=== PATIENT | female | born 1930 | race Caucasian/White ===

== ENCOUNTER 2019-07-05 01:48 | Emergency (ER) | payer MEDICAID, MEDICARE, OTHER ==
[~2019-07-05] VITALS: Ht 152.4 cm; Wt 59.0 kg
[~2019-07-05 01:48] MED LIST: ACET500T33 PO; AMLO10TA8 PO; BISA10SU55 RC; CHOL5POW MC; HYDR12.575 PO; INSU100I13 SQ; LOPE2TAB11 PO; MAGN400O7 PO; METF500T25 PO; NABU500T PO; SIME125T17 PO
--- NOTE | 2019-07-05 02:33 | PHYS DOC ---
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 She hit her head on the wall. It is unknown whether there was loss of consciousness. She does have a forehead laceration. According to long term staff other than the fact that she has a laceration on her head she is been acting her usual self since the fall.[] Review of Systems Review of Systems Review of systems is unobtainable secondary to underlying dementia Allergies Allergies Allergies Coded Allergies Type Severity Reaction Last Updated Verified lisinopril Allergy Unknown 10/04/13 Yes Physical Exam Physical Exam Constitutional: Frail, elderly no distress. [] HENT: She has a 3 cm laceration in the middle of her forehead that is linear. She has a small abrasion over the bridge of her nose with significant ecchymosis over the bridge of her nose. She also has a 1 cm laceration that does not cross the vermilion border her upper lip[] Eyes: PERRLA, EOMI, conjunctiva normal, no discharge. [] Neck: Normal range of motion, no tenderness, supple, no stridor. [] Cardiovascular:Heart rate regular rhythm, no murmur [] Lungs & Thorax: Bilateral breath sounds clear to auscultation [] Abdomen: Bowel sounds normal, soft, no tenderness, no masses, no pulsatile masses. [] Skin: 1.5 cm linear laceration to her forehead. [] Back: No tenderness, no CVA tenderness. [] Extremities: No tenderness, no cyanosis, no clubbing, ROM intact, no edema. [] Neurologic: Awake and alert moves all 4 extremities. [] Psychologic: Smiling and interactive. [] Current Patient Data Vital Signs Vital Signs Date Time Temp Pulse Resp B/P (MAP) Pulse Ox O2 Delivery O2 Flow Rate FiO2 07/05/19 04:00 90 21 96 07/05/19 02:11 97.4 114/67 (83) Room Air 97.4 EKG EKG [] Radiology/Procedures Radiology/Procedures [] Impressions: CT HEAD AND MAXILLOFACIAL WO Date: 07/05/2019 1:58 AM Clinical Indication: Head trauma, pain Comparison: None. Technique: 5 mm axial tomographic images were obtained of the head without contrast. These were viewed on brain and bone windows. Axial helical images of the face were obtained without contrast. Axial and coronal reconstruction was performed. One or more of the following dose reduction techniques were utilized: Automated exposure control (AEC), Adjustment of mA and/or kV according to patient size, Use of iterative reconstruction technique such as ASiR, CT scan done according to ALARA and image gently/image wisely CT HEAD FINDINGS: Mild nonspecific periventricular hypoattenuation is most consistent with chronic small vessel ischemic disease. Mild generalized cerebral and cerebellar volume loss. No intra- or extra-axial mass or fluid collection. No acute hemorrhage. The ventricles are normal in size, shape, and morphology. The michelle-white matter junction is normal. The basilar cisterns are patent. The mastoid air cells are clear. CT FACE FINDINGS: Comminuted and depressed bilateral nasal bone fractures. Significant adjacent soft tissue swelling. Fracture of the anterior nasal septum. Maxillary sinus mucus retention cysts. The orbits are normal. The globes are intact. Numerous punctate bilateral carotid calcifications, nonspecific, can be seen with certain autoimmune conditions. Torus palatinus. Impression: 1. Acute comminuted nasal bone fractures. Acute fracture of the nasal septum. 2. No acute intracranial process Course & Med Decision Making Course & Med Decision Making Pertinent Labs and Imaging studies reviewed. (See chart for details) [Procedure: Laceration repair forehead Wound was thoroughly irrigated under pressure with Shur-Clens. Then the wound edges were reapproximated and Dermabond was applied to the forehead wound with excellent results. Patient tolerated the procedure well.] Procedure #2: Laceration repair upper lip The lip was cleaned with saline and anesthetized with 3 mL of 1% lidocaine and then repaired using simple interrupted #3 5-0 Vicryl suture with excellent approximation. Patient tolerated procedure well. Dragon Disclaimer Dragon Disclaimer This electronic medical record was generated, in whole or in part, using a voice recognition dictation system. Departure Departure Impression: Primary Impression: Forehead laceration Additional Impressions: Nasal fracture Nasal septum fracture Lip laceration Disposition: 01 HOME, SELF-CARE Condition: IMPROVED Referrals: [facility] (PCP) Patient Instructions: Facial Laceration, Laceration Care, Adult, Nasal Fracture, Tissue Adhesive Wound Care Additional Instructions: Return to the emergency department with any new or concerning symptoms Scripts Cephalexin (KEFLEX) 500 Mg Capsule 1 CAP PO TID, #30 CAP Prov: ANIA BUSTILLOS DO 07/05/19 Problem Qualifiers Primary Impression: Forehead laceration Encounter type: initial encounter Qualified Codes: S01.81XA - Laceration without foreign body of other part of head, initial encounter Additional Impressions: Nasal fracture Encounter type: initial encounter Fracture type: closed Qualified Codes: S02.2XXA - Fracture of nasal bones, initial encounter for closed fracture Nasal septum fracture Encounter type: initial encounter Fracture type: closed Qualified Codes: S02.2XXA - Fracture of nasal bones, initial encounter for closed fracture ANIA BUSTILLOS DO Jul 05, 2019 02:33
--- NOTE | 2019-07-05 03:26 | RAD ---
CT HEAD AND MAXILLOFACIAL WO Date: 07/05/2019 1:58 AM Clinical Indication: Head trauma, pain Comparison: None. Technique: 5 mm axial tomographic images were obtained of the head without contrast. These were viewed on brain and bone windows. Axial helical images of the face were obtained without contrast. Axial and coronal reconstruction was performed. One or more of the following dose reduction techniques were utilized: Automated exposure control (AEC), Adjustment of mA and/or kV according to patient size, Use of iterative reconstruction technique such as ASiR, CT scan done according to ALARA and image gently/image wisely CT HEAD FINDINGS: Mild nonspecific periventricular hypoattenuation is most consistent with chronic small vessel ischemic disease. Mild generalized cerebral and cerebellar volume loss. No intra- or extra-axial mass or fluid collection. No acute hemorrhage. The ventricles are normal in size, shape, and morphology. The michelle-white matter junction is normal. The basilar cisterns are patent. The mastoid air cells are clear. CT FACE FINDINGS: Comminuted and depressed bilateral nasal bone fractures. Significant adjacent soft tissue swelling. Fracture of the anterior nasal septum. Maxillary sinus mucus retention cysts. The orbits are normal. The globes are intact. Numerous punctate bilateral carotid calcifications, nonspecific, can be seen with certain autoimmune conditions. Torus palatinus. Impression: 1. Acute comminuted nasal bone fractures. Acute fracture of the nasal septum. 2. No acute intracranial process Electronically signed by: Fortino Hdez MD (07/05/2019 3:23 AM) [facility]
[2019-07-05 04:00] VITALS: BP 113/67
[2019-07-05] MEDS ORDERED: CEPH-264 PO (04:28)
== END 2019-07-05 05:49 | disposition home or self-care (01) ==
LOC: ER 01:48
DX: S02.2XXA Fracture of nasal bones, initial encounter for closed fracture (principal); S01.81XA Laceration without foreign body of other part of head, initial encounter; S01.511A Laceration without foreign body of lip, initial encounter; E11.9 Type 2 diabetes mellitus without complications; I10 Essential (primary) hypertension; Z88.8 Allergy status to other drugs, medicaments and biological substances; W06.XXXA Fall from bed, initial encounter; Y93.89 Activity, other specified; Y92.89 Other specified places as the place of occurrence of the external cause; Y99.8 Other external cause status
CPT/HCPCS: 12013; 70450; 70486; 99284

== ENCOUNTER 2019-08-28 18:17 | Emergency (ER) | payer MEDICARE ==
[~2019-08-28] VITALS: Ht 157.5 cm; Wt 56.7 kg
[~2019-08-28 18:17] MED LIST changes: +CEPH-264 PO
--- NOTE | 2019-08-28 18:58 | PHYS DOC ---
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 (JESSICA FLOR MD) Adult General Chief Complaint Chief Complaint: MECHANICAL FALL HPI HPI Patient is a 89 year old female who presents with coming from [facility]. Nursing staff states the patient was getting out of wheelchair when she had a unwitnessed fall, hitting her left forehead on the door. The patient also has a frontal scalp 2cm laceration. Patient is sta mental status at AOx 1. This is normal for her. (LIV MISHRA APRN) Review of Systems Review of Systems Musculoskeletal: Fall. Denies back pain or joint pain [] Integument: Head laceration. Denies rash or skin lesions [] All other systems were reviewed and found to be within normal limits, except as documented in this note. (LIV MISHRA APRN) Current Medications Current Medications Current Medications Medications (Trade) Dose Ordered Sig/Vincent Start Time Stop Time Status Last Admin Dose Admin Lidocaine HCl (Lidocaine 1% 20ml Vial) 20 ml 1X ONCE 08/28/19 20:00 08/28/19 20:01 DC 08/28/19 20:02 20 ML (JESSICA FLOR MD) Allergies Allergies Allergies Coded Allergies Type Severity Reaction Last Updated Verified lisinopril Allergy Unknown 10/04/13 Yes (JESSICA FLOR MD) Physical Exam Physical Exam Constitutional: Well developed, well nourished, no acute distress, non-toxic appearance. [] HENT: Normocephalic, atraumatic, bilateral external ears normal, oropharynx moist, no oral exudates, nose normal. [] Eyes: PERRLA, EOMI, conjunctiva normal, no discharge. [] Neck: Normal range of motion, no tenderness, supple, no stridor. [] Cardiovascular:Heart rate regular rhythm, no murmur [] Lungs & Thorax: Bilateral breath sounds clear to auscultation [] Abdomen: Bowel sounds normal, soft, no tenderness, no masses, no pulsatile masses. [] Skin: Frontal head scalp laceration. Bruising to left forehead. Warm, dry, no erythema, no rash. [] Back: No tenderness, no CVA tenderness. [] Extremities: No tenderness, no cyanosis, no clubbing, ROM intact, no edema. [] Neurologic: Alert and oriented X 3, normal motor function, normal sensory function, no focal deficits noted. [] Psychologic: Affect normal, judgement normal, mood normal. [] (LIV MISHRA APRN) Current Patient Data Vital Signs Vital Signs Date Time Temp Pulse Resp B/P (MAP) Pulse Ox O2 Delivery O2 Flow Rate FiO2 08/28/19 21:30 101 12 94 08/28/19 18:24 97.2 123/68 (86) Room Air 97.2 (JESSICA FLOR MD) EKG EKG [] (LIV MISHRA APRN) Radiology/Procedures Radiology/Procedures [] (LIV MISHRA APRN) Impressions: [facility] [address] [place] [address] IMAGING REPORT Signed PATIENT: ERIN LOUIS ACCOUNT: [id number] : 1930 LOCATION: ER AGE: 89 SEX: F EXAM STATUS: PRE ER ORD. PHYSICIAN: LIV MISHRA APRN REASON: FALL PROCEDURE: CT HEAD AND CERVICAL SPINE WO Exam: CT head and cervical spine without contrast INDICATION: Fall TECHNIQUE: Sequential axial images through the head and cervical spine were obtained without the administration of IV contrast. Comparisons: 07/05/2019 FINDINGS: Head: No focal parenchymal lesion or hemorrhage is identified. There is no midline shift or sulcal effacement. Patchy hypodensities within the periventricular white matter, similar to the prior exam. No acute vascular territory infarction is identified. Powell-white distinction is preserved. The ventricular system is within normal limits without compression hydrocephalus. The basal cisterns are well maintained. There is a left maxillary sinus mucus retention cyst. Otherwise, The visualized portions of the paranasal sinuses and mastoid air cells are well-pneumatized. No acute fractures. Cervical spine: Vertebral body heights are well-maintained. Grade 1 anterolisthesis of C2 on C3 C5 and on C6. Fracture to the cervical spine is not identified. Multilevel spondylotic change in the cervical spine with degenerative disc disease greatest at C6-C7. Mild bilateral facet arthropathy is noted throughout cervical spine. Visualized paraspinal soft tissues are unremarkable. IMPRESSION: 1. No acute intracranial abnormality. 2. Negative CT C-spine for acute traumatic injury. Exposure: One or more of the following in the visualized dose reduction techniques were utilized for this examination: 1. Automated exposure control 2. Adjustment of the MA and/or KV according to patient size Use of iterative of reconstructive technique Electronically signed by: Felipe Guerrero MD (08/28/2019 7:33 PM) [facility] DICTATED and SIGNED BY: FELIPE GUERRERO MD DATE: 08/28/191932 [facility] [address] [place] [address] IMAGING REPORT Signed PATIENT: ERIN LOUIS ACCOUNT: [id number] : 1930 LOCATION: ER AGE: 89 SEX: F EXAM STATUS: REG ER ORD. PHYSICIAN: LIV MISHRA APRN REASON: FALL PROCEDURE: PORTABLE CHEST 1V EXAM: 1. CHEST ONE VIEW. 2. THORACIC SPINE 3 VIEWS. 3. FRONTAL PELVIS WITH BILATERAL TWO-VIEW HIP. HISTORY: Fall, pain. COMPARISON: 10/03/2013. FINDINGS: The inspiration is small. There are no confluent infiltrates. There is no pneumothorax or pleural effusion. The heart is not enlarged. There are atherosclerotic calcifications of the aorta. There is a moderate inferior plate compression deformity at T12. This does not appear acute. There is also mild wedging at L1. Another mild compression deformity is noted at T5. Retrolisthesis at T12-L1 and L1-2 measures 4 mm. There is mild exaggeration of the thoracic kyphosis. Disc heights are maintained for patient age. Refer to today's CT for description of cervical degenerative changes. A rim calcified structure in the right hemipelvis measures 3.6 x 2.6 cm. This may be an ovarian lesion or aneurysm, but appears stable since 2015. A right total hip arthroplasty is in expected alignment. There is a chronic healed fracture deformity of the right intertrochanteric femur. No acute fractures are identified within the pelvis and both proximal femurs. The joint spaces of the left hip are maintained. Atherosclerotic calcifications are noted. There are instrumented posterior fusion changes of the lower lumbar spine with laminectomies. IMPRESSION: 1. No confluent infiltrates. 2. Mild to moderate compression deformities at T5, T12 and L1 are most likely chronic. Correlate for focal tenderness. 3. 3.6 cm rim calcified mass in the right hemipelvis. This may be an overlying lesion or aneurysm. It appears stable since 2015. 4. No acute fractures within the pelvis. Right total hip arthroplasty in expected alignment. Electronically signed by: Purnima Lui MD (08/28/2019 9:01 PM) [facility] DICTATED and SIGNED BY: JOSEP LUI MD DATE: 08/28/192100 (LIV MISHRA APRN) Course & Med Decision Making Course & Med Decision Making Patient unable to tell me if she has pain. I have palpated all over her body at all extremities, joints, ribs, chest, abdomen, spine, para spinal, neck, and head and the patient complains of no pain and there is no bruising, deformities, abrasion, swelling or limited rom. . The patient is moving around in the bed and moving and bending at all joints with full ROM. Patient has bruising to the left forehead. PERRLA. Moves her neck with full ROM. Skin pink warm and dry. No joint deformities or swelling. No extremity swelling. Pedal and radial pulses present. Jagged 2cm laceration to the frontal scalp. Speaks in full clear sentences. Abdomen is soft and nontender without bruising. Laceration Repair by me: Anesthesia: 1% lidocaine locally Location: Frontal Scalp Tendon/Joint/Nerves: No injury Foreign body: None detected after copious irrigation and exploration Technique: 4 Conifer Complexity: No subcutaneous sutures/mucosal repair/edge excision Post Closure Length: 2Cm Patient's bleeding was easily controlled in the department and there is no indication of anemia. No evidence of compartment syndrome, neurologic injury, vascular injury, open joint, tendon laceration, or foreign body. Patient is appropriate for outpatient follow up. 48 hour wound check. Scar minimization instructions given. (LIV MISHRA APRN) Dragon Disclaimer Dragon Disclaimer This electronic medical record was generated, in whole or in part, using a voice recognition dictation system. (LIV MISHRA APRN) Departure Departure Impression: Primary Impression: Fall Additional Impression: Laceration Disposition: HOME, SELF-CARE Condition: STABLE Referrals: [facility]QU[facility] (PCP) Patient Instructions: Contusion, Laceration Care, Adult Additional Instructions: FOLLOW UP WITH PRIMARY CARE PROVIDER. STAPLE NEEDS TO BE REMOVED IN 10 DAYS. Problem Qualifiers Primary Impression: Fall Encounter type: initial encounter Qualified Codes: W19.XXXA - Unspecified fall, initial encounter LIV MISHRA APRN Aug 28, 2019 18:58 JESSICA FLOR MD Aug 29, 2019 18:17
--- NOTE | 2019-08-28 19:35 | RAD ---
Exam: CT head and cervical spine without contrast INDICATION: Fall TECHNIQUE: Sequential axial images through the head and cervical spine were obtained without the administration of IV contrast. Comparisons: 07/05/2019 FINDINGS: Head: No focal parenchymal lesion or hemorrhage is identified. There is no midline shift or sulcal effacement. Patchy hypodensities within the periventricular white matter, similar to the prior exam. No acute vascular territory infarction is identified. Powell-white distinction is preserved. The ventricular system is within normal limits without compression hydrocephalus. The basal cisterns are well maintained. There is a left maxillary sinus mucus retention cyst. Otherwise, The visualized portions of the paranasal sinuses and mastoid air cells are well-pneumatized. No acute fractures. Cervical spine: Vertebral body heights are well-maintained. Grade 1 anterolisthesis of C2 on C3 C5 and on C6. Fracture to the cervical spine is not identified. Multilevel spondylotic change in the cervical spine with degenerative disc disease greatest at C6-C7. Mild bilateral facet arthropathy is noted throughout cervical spine. Visualized paraspinal soft tissues are unremarkable. IMPRESSION: 1. No acute intracranial abnormality. 2. Negative CT C-spine for acute traumatic injury. Exposure: One or more of the following in the visualized dose reduction techniques were utilized for this examination: 1. Automated exposure control 2. Adjustment of the MA and/or KV according to patient size Use of iterative of reconstructive technique Electronically signed by: Felipe Miller MD (08/28/2019 7:33 PM) [facility]
[2019-08-28] MEDS ORDERED: LIDOCAINE 1% Multi-Dose 20 ML VIAL. INJ ONE (20:00)
--- NOTE | 2019-08-28 21:03 | RAD ---
EXAM: 1. CHEST ONE VIEW. 2. THORACIC SPINE 3 VIEWS. 3. FRONTAL PELVIS WITH BILATERAL TWO-VIEW HIP. HISTORY: Fall, pain. COMPARISON: 10/03/2013. FINDINGS: The inspiration is small. There are no confluent infiltrates. There is no pneumothorax or pleural effusion. The heart is not enlarged. There are atherosclerotic calcifications of the aorta. There is a moderate inferior plate compression deformity at T12. This does not appear acute. There is also mild wedging at L1. Another mild compression deformity is noted at T5. Retrolisthesis at T12-L1 and L1-2 measures 4 mm. There is mild exaggeration of the thoracic kyphosis. Disc heights are maintained for patient age. Refer to today's CT for description of cervical degenerative changes. A rim calcified structure in the right hemipelvis measures 3.6 x 2.6 cm. This may be an ovarian lesion or aneurysm, but appears stable since 2014. A right total hip arthroplasty is in expected alignment. There is a chronic healed fracture deformity of the right intertrochanteric femur. No acute fractures are identified within the pelvis and both proximal femurs. The joint spaces of the left hip are maintained. Atherosclerotic calcifications are noted. There are instrumented posterior fusion changes of the lower lumbar spine with laminectomies. IMPRESSION: 1. No confluent infiltrates. 2. Mild to moderate compression deformities at T5, T12 and L1 are most likely chronic. Correlate for focal tenderness. 3. 3.6 cm rim calcified mass in the right hemipelvis. This may be an overlying lesion or aneurysm. It appears stable since 2014. 4. No acute fractures within the pelvis. Right total hip arthroplasty in expected alignment. Electronically signed by: Purnima Lui MD (08/28/2019 9:01 PM) [facility]
[2019-08-28 21:30] VITALS: BP 138/103
== END 2019-08-28 22:06 | disposition home or self-care (01) ==
LOC: ER 18:17
DX: S01.01XA Laceration without foreign body of scalp, initial encounter (principal); E11.9 Type 2 diabetes mellitus without complications; I10 Essential (primary) hypertension; Z88.8 Allergy status to other drugs, medicaments and biological substances; W18.09XA Striking against other object with subsequent fall, initial encounter; Y93.89 Activity, other specified; Y92.89 Other specified places as the place of occurrence of the external cause; Y99.8 Other external cause status
CPT/HCPCS: 12001; 70450; 71045; 72072; 72125; 73521; 99284-25